=== PATIENT | male | born 1955 | race Caucasian/White ===

== ENCOUNTER 2016-06-03 00:58 | Inpatient (IN) | payer OTHER ==
[~2016-06-03] VITALS: Ht 170.2 cm; Wt 63.6 kg
[2016-06-03] VITALS (23 sets, daily range): BP systolic 82–168; BP diastolic 58–103; PULSE 63–116; RESP 12–25; TEMP 97.2–98.7; O2SAT 96–100
[~2016-06-03 00:58] MED LIST: DILA100C PO; LEVE500 PO
[2016-06-03] MEDS ORDERED: PROPOFOL 1000 MG/100 ML INJ 100 ML ONE (01:07)
[2016-06-03] MEDS ORDERED: SUCCINYLCHOLINE CHLORIDE 200 MG/10 ML VIAL IVP ONE (01:45)
[2016-06-03] MEDS ORDERED: ETOMIDATE 20 MG/10 ML VIAL IVP ONE (01:45)
[2016-06-03] MEDS ORDERED: SODIUM CHLORIDE 0.9% FLUSH 5 ML FLUSH IVF PRN (01:45)
[2016-06-03] MEDS ORDERED: SODIUM CHLOR 0.9% 1000 ML INJ 1,000 ML IV ONE (01:45)
[2016-06-03] MEDS ORDERED: PROPOFOL 1000 MG/100 ML INJ 100 ML IV SCH ×2 (02:00→05:45)
[2016-06-03 02:24] LABS: BLOOD GAS BASE EXCESS -5.3 mmol/L (-2-2); BLOOD GAS CARBOXYHEMOGLOBIN 4.6 % (0-4); BLOOD GAS HCO3 19 mmol/L (22-26); BLOOD GAS METHEMOGLOBIN 1.9 % (0-2); BLOOD GAS O2 HGB SATURATION 93 % (90-100); BLOOD GAS OXYGEN CONTENT 20.1 Vol % (12.0-20.0); BLOOD GAS PCO2 34 mmHg (38-42); BLOOD GAS PO2 359 mmHG (61-120); BLOOD GAS TOTAL HGB 14.7 G/DL (12.0-16.0); TEMP CORR TO 98.6
[2016-06-03 02:25] LABS: CRITICAL VALUE YES; DRAW SITE LT BRACHIAL; FIO2 80 %; NUMBER OF ARTERIAL PUNCTURES 1; OXYGEN DEVICE VENTILATOR; STAT YES; VENT SETTINGS AC 14/500 5 PEEP
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
[2016-06-03 02:38] LABS: AUTOMATED NEUTROPHIL # 8.9 TH/MM3 (1.8-7.7); BASOPHIL % 0.3 % (0.0-2.0); EOSINOPHIL # 0.2 TH/MM3 (0-0.4); EOSINOPHIL % 1.5 % (0.0-4.0); HEMATOCRIT 45.1 % (39.0-51.0); HEMO FLAGS DIFF FINAL; LYMPHOCYTE # 4.3 TH/MM3 (1.0-4.8); MEAN CELL VOLUME 99.3 FL (80.0-100.0); MEAN CORPUSCULAR HEMOGLOBIN 32.6 PG (27.0-34.0); MEAN CORPUSCULAR HGB CONC 32.8 % (32.0-36.0); MONO % 8.3 % (0.0-8.0); NEUT % 60.9 % (16.0-70.0); PLATELET COUNT 287 TH/MM3 (150-450); RED BLOOD COUNT 4.55 MIL/MM3 (4.50-5.90); RED CELL DISTRIBUTION WIDTH 13.7 % (11.6-17.2); WHITE BLOOD COUNT 14.7 TH/MM3 (4.0-11.0)
[2016-06-03 02:46] LABS: PROTHROMBIN TIME - PATIENT 10.5 SEC (9.8-11.6)
[2016-06-03 02:47] LABS: BLOOD, URINE SMALL (NEG); COMMENT (UR) CULT NOT INDICATED; CULTURE IF INDICATED CULT NOT INDICATED; GLUCOSE,URINE NEG (NEG); KETONE, URINE TRACE mg/dL (NEG); MUCUS URINE FEW /lpf (OCC); NITRITE,URINE NEG (NEG); SQUAMOUS EPITHELIAL CELL URINE <1 /hpf (0-5); URINE COLOR LIGHT-YELLOW (YELLW/STRAW)
[2016-06-03 02:49] LABS: AMPHETAMINE, URINE NEG (NEG); BARBITURATES, URINE NEG (NEG); COCAINE, URINE NEG (NEG)
--- NOTE | 2016-06-03 02:51 | RADRPT ---
EXAM DATE/TIME: 06/03/2016 01:59 [facility] COMPARISON: CHEST SINGLE AP, September 03, 2015, 19:21. INDICATIONS : Short of breath. MEDICAL HISTORY : Hypertension. SURGICAL HISTORY : None. ENCOUNTER: Initial ACUITY: 1 day PAIN SCORE: Non-responsive. LOCATION: Bilateral chest FINDINGS: A single view of the chest demonstrates the lungs to be symmetrically aerated without evidence of mas s, infiltrate or effusion. The cardiomediastinal contours are unremarkable. Osseous structures are intact. No tip of the endotracheal tube approximately 4 cm proximal to the jyoti. CONCLUSION: No acute disease. Panfilo Causey Jr., MD on June 03, 2016 at 2:48 Board Certified Radiologist. This report was verified electronically.
[2016-06-03 02:57] LABS: ALT (GPT) 31 U/L (12-78); ANION GAP 26 MEQ/L (5-15); AST (GOT) 39 U/L (15-37); BICARBONATE 9.8 MEQ/L (21.0-32.0); BLOOD UREA NITROGEN 11 MG/DL (7-18); CHLORIDE 98 MEQ/L (98-107); GLOMERULAR FILTRATION RATE 47 ML/MIN (>89); MAGNESIUM 2.5 MG/DL (1.5-2.5); POTASSIUM 3.6 MEQ/L (3.5-5.1); SODIUM (NA) 134 MEQ/L (136-145)
[2016-06-03 02:59] LABS: ALKALINE PHOSPHATASE 138 U/L (45-117); CREATINE KINASE 675 U/L (39-308); TOTAL BILIRUBIN ADULT 0.3 MG/DL (0.2-1.0)
[2016-06-03 03:12] LABS: CKMB 8.9 NG/ML (0.5-3.6)
[2016-06-03 03:14] LABS: ACETAMINOPHEN LESS THAN 2.0 MCG/ML (10.0-30.0)
[2016-06-03] MEDS ORDERED: FOSPHENYTOIN INJ 1,000 MGPE in SODIUM CHLORIDE 0.9% INJ 50 ML IV ONE (04:00)
--- NOTE | 2016-06-03 04:42 | HHI.HP ---
HPI Service Critical Care Medicine Primary Care Physician Unknown Admission Diagnosis AMS, Respiratory Failure Diagnosis: Travel History International Travel<30 Days: No Contact w/Intl Traveler <30 Da: No Traveled to Known Affected Are: No History of Present Illness Patient is intubated and unable to provide history. There is no family or friends with him. History was obtained by review of the MR and discussion with Dr. Ng. 60-year-old male with past medical history of seizure disorder and alcohol dependence who was found on the sidewalk next to a [employer] unresponsive. He had prescriptions with him for Dilantin and Keppra but had never been filled from 05/27/16. [facility] felt like he may be post ictal versus intoxicated. When he got into the ambulance truck he began having a grand mal seizure. He was given Ativan 2 mg IO and then another Ativan 2 mg IO but he was biting his tongue and blood was pooling in his oropharynx and they became concerned for airway protection so he was intubated with a Combitube following administration of etomidate. Blood glucose was 63. He was given dextrose and glucose on arrival was 173. Upon arrival he was moving all extremities but nonpurposeful. Combitube was removed and he was intubated by Dr. Rebekah Ng in the ED. Patient was incontinent of stool. Dilantin level I.3. Loaded with fosphenytoin 100 mg PE in the emergency department. [place] [facility] [place] after a seizure and had been prescribed Keppra and Dilantin. He drinks alcohol daily but reported at last ED visit that he had not been able to afford EtOH Review of Systems ROS Limitations: Clinical Condition, Intubated, Altered Mental Status Past Family Social History Allergies: Coded Allergies: Tegretol (Verified Allergy, Unknown, Dizziness, 06/03/16) DENIES Past Medical History Seizure disorder Alcohol dependence Tobacco abuse Past Surgical History Unable to obtain secondary to patient's clinical condition. He does have a surgical scar to his right abdomen Reported Medications Keppra 500 mg by mouth twice a day Dilantin 100 mg by mouth 3 times a day Family History Unable to obtain secondary to patient's clinical condition. Social History Unable to obtain from patient due to his critical condition. Review of EMR indicates: He is an ongoing smoker of one pack of cigarettes per day He has daily alcohol use At a prior visit he reported history of illicit drug use but was not more descriptive than that. Physical Exam Vital Signs Vital Signs Date Time Temp Pulse Resp B/P Pulse Ox O2 Delivery O2 Flow Rate FiO2 06/03/16 04:00 100 35 06/03/16 03:24 97.5 76 16 135/87 100 Room Air 06/03/16 02:33 98 Auto-Vent 06/03/16 02:33 12 98 Auto-Vent 06/03/16 02:30 97.2 81 16 136/85 100 Room Air 06/03/16 01:12 107 16 96 06/03/16 01:11 116 16 131/74 96 06/03/16 01:10 99 80 Physical Exam Drips: Propofol 50 micrograms per KG per minute Temp 98.1 Blood pressure 136/92 pulse 82 sats 99% GENERAL: Thin male who is very morrow. On sedation and mechanical ventilation SKIN: Warm and dry. HEAD: . Normocephalic. EYES: Pupils equal and round, pinpoint and reactive bilaterally. Mild bilateral conjunctival injection without exudate. ENT: No nasal bleeding or discharge. There is a bite on left tip of his tongue with some bleeding, will not require repair. Very poor dentition. NECK: Trachea midline. Jugular veins are flat CARDIOVASCULAR: Regular rate and rhythm, sinus rhythm on the monitor. No murmurs rubs or gallops. RESPIRATORY: Orotracheally intubated and on mechanical ventilation with ACV tidal volume 500/rate 14/P5/FiO2 40%. No accessory muscle use. Clear to auscultation. Breath sounds equal bilaterally. GASTROINTESTINAL: Abdomen soft, non-tender, nondistended. There is a well- healed scar to the right of his umbilicus. Bowel sounds are present. OG tube is in place with mostly clear with scant dark blood output. : Figueroa in place with light yellow urine output with some sediment. MUSCULOSKELETAL: Extremities without clubbing, cyanosis, or edema. No obvious deformities. NEUROLOGICAL: Opens eyes to noxious stimuli when sedation held and localizes bilateral upper extremities. Withdraws bilateral lower extremities. Does not follow commands. Laboratory Laboratory Tests Test 06/03/16 06/03/16 06/03/16 02:05 02:15 02:20 Blood Gas Puncture Site LT BRACHIAL Blood Gas Patient Temperature 98.6 Blood Gas HCO3 19 Blood Gas Base Excess -5.3 Blood Gas Oxygen Saturation 93 Arterial Blood pH 7.36 Arterial Blood Partial 34 Pressure CO2 Arterial Blood Partial 359 Pressure O2 Arterial Blood Oxygen Content 20.1 Arterial Blood 4.6 Carboxyhemoglobin Arterial Blood Methemoglobin 1.9 Blood Gas Hemoglobin 14.7 Oxygen Delivery Device VENTILATOR Blood Gas Ventilator Setting AC 14/500 5 PEEP Blood Gas Inspired Oxygen 80 Urine Opiates Screen NEG Urine Barbiturates Screen NEG Urine Amphetamines Screen NEG Urine Benzodiazepines Screen NEG Urine Cocaine Screen NEG Urine Cannabinoids Screen NEG White Blood Count 14.7 Red Blood Count 4.55 Hemoglobin 14.8 Hematocrit 45.1 Mean Corpuscular Volume 99.3 Mean Corpuscular Hemoglobin 32.6 Mean Corpuscular Hemoglobin 32.8 Concent Red Cell Distribution Width 13.7 Platelet Count 287 Mean Platelet Volume 7.7 Neutrophils (%) (Auto) 60.9 Lymphocytes (%) (Auto) 29.0 Monocytes (%) (Auto) 8.3 Eosinophils (%) (Auto) 1.5 Basophils (%) (Auto) 0.3 Neutrophils # (Auto) 8.9 Lymphocytes # (Auto) 4.3 Monocytes # (Auto) 1.2 Eosinophils # (Auto) 0.2 Basophils # (Auto) 0.0 CBC Comment DIFF FINAL Differential Comment Prothrombin Time 10.5 Prothromb Time International 1.0 Ratio Activated Partial 29.0 Thromboplast Time Urine Color LIGHT-YELLOW Urine Turbidity HAZY Urine pH 5.0 Urine Specific [place] 1.011 Urine Protein TRACE Urine Glucose (UA) NEG Urine Ketones TRACE Urine Occult Blood SMALL Urine Nitrite NEG Urine Bilirubin NEG Urine Urobilinogen LESS THAN 2.0 Urine Leukocyte Esterase NEG Urine WBC LESS THAN 1 Urine Squamous Epithelial <1 Cells Urine Mucus FEW Microscopic Urinalysis Comment CULT NOT INDICATED Sodium Level 134 Potassium Level 3.6 Chloride Level 98 Carbon Dioxide Level 9.8 Anion Gap 26 Blood Urea Nitrogen 11 Creatinine 1.52 Estimat Glomerular Filtration 47 Rate Random Glucose 164 Calcium Level 8.4 Magnesium Level 2.5 Total Bilirubin 0.3 Aspartate Amino Transf 39 (AST/SGOT) Alanine Aminotransferase 31 (ALT/SGPT) Alkaline Phosphatase 138 Total Creatine Kinase 675 Creatine Kinase MB 8.9 Creatine Kinase MB % 1.3 Troponin I LESS THAN 0.02 B-Type Natriuretic Peptide 12 Total Protein 8.0 Albumin 4.3 Lipase 109 Salicylates Level 6.1 Acetaminophen Level LESS THAN 2.0 Phenytoin (Dilantin) Level 1.3 Ethyl Alcohol Level LESS THAN 3 Result Diagram: 06/03/160 06/03/16219 Assessment and Plan Problem List: (1) Alcohol abuse ICD Code: F10.10 Status: Chronic (2) Seizure disorder ICD Code: G40.909 Status: Chronic (3) Hypoglycemia ICD Code: E16.2 Status: Acute (4) BERE (acute kidney injury) ICD Code: N17.9 Status: Acute (5) Acute respiratory failure ICD Code: J96.00 Status: Acute (6) Increased anion gap metabolic acidosis ICD Code: E87.2 Status: Acute (7) Tobacco abuse ICD Code: Z72.0 Status: Chronic Assessment and Plan NEURO: Acute seizure Subtherapeutic Dilantin level Seizure disorder Alcohol dependence Propofol for sedation with target RASS -[address] brain is pending Urine drug screen negative for stimulants. EtOH is less than 3. Thiamine/multivitamin/folic acid supplementation. Monitor for evidence of alcohol withdrawal Librium 25 mg per tube q6 hours. Ativan prn EtOH withdrawal. Dilantin level in am 06/05. RESP: Acute respiratory failure Tobacco abuse Intubated 06/03/16 for airway protection due to postictal state and sedatives following seizure. Routine airway per discussion with the ED physician. ACV tidal volume 500/rate 14/PEEP 5 Chest x-ray demonstrates satisfactory endotracheal tube position. Lungs are clear. DuoNeb every 6 hours. Albuterol every 2 hours when necessary. Start spontaneous breathing trial after fosphenytoin load is completed CV: Monitor hemodynamic GI: NPO. Place OGT. Initiate enteral feeds if not extubating today. FEN/RENAL: Acute kidney injury Hyponatremia likely secondary to alcoholism. Acute anion gap metabolic acidosis (most likely related to a lactic acidemia secondary to seizure) will check lactic acid level. There is also potential for alcoholic ketoacidosis. D5NS with 20 mEq of KCl per liter at 125 an hour [address] in place. Monitor intake and output. Monitor electrolytes. Avoid nephrotoxins. Replace electrolytes as indicated per ICU elected to let replacement protocol. CPK 675 ID: Mild leukocytosis which may be reactive secondary to seizure Monitor for evidence of infection, particularly aspiration pneumonia. Urinalysis is negative. Current chest x-ray has no infiltrate. HEME: No acute hematologic issues. ENDO: Hypoglycemia Is hypoglycemic per E VAC. Now euglycemic following dextrose administration. Will monitor on dextrose and fusion as per above PROPH: SCDs and teds for DVT prophylaxis. Hold on pharmacologic DVT prophylaxis until obtain results of CT brain. Protonix 40 mg IV daily for stress ulcer prophylaxis. ACCESS: Peripheral IV providing adequate access at this time. Critical care time 55 minutes exclusive of separately billable procedures. Frances Mccoy MD Jun 03, 2016 04:41
[2016-06-03] MEDS ORDERED: CHLORHEXIDINE GLUCONATE 2 % 1 PACK (2 CLOTHS) TOP PRN (05:30)
[2016-06-03] MEDS ORDERED: ONDANSETRON HCL 4 MG/2 ML VIAL IV PRN (05:30)
[2016-06-03] MEDS ORDERED: RESP: ALBUTEROL 2.5 MG/3 ML NEB (PRN) INH (05:30)
[2016-06-03] MEDS ORDERED: LORazepam 2 MG/ML VIAL IV PRN (05:30)
[2016-06-03] MEDS ORDERED: SODIUM CHLORIDE 0.9% FLUSH 5 ML FLUSH IV FLUSH PRN (05:30)
[2016-06-03] MEDS ORDERED: ACETAMINOPHEN 325 MG TAB PO PRN (05:30)
[2016-06-03] MEDS ORDERED: MISCELLANEOUS NURSING INFORMATION XX SCH (05:30)
[2016-06-03] MEDS ORDERED: POTASSIUM PHOSPHATE MONOBASIC 500 MG TAB PO/TUBE PRN (05:45)
[2016-06-03] MEDS ORDERED: POTASSIUM CHLOR 40 MEQ PREMIX 100 ML IV PRN ×2 (05:45)
[2016-06-03] MEDS ORDERED: POTASSIUM PHOSPHATE INJ 30 MMOL in SODIUM CHLOR 0.9% 250 ML INJ 250 ML IV PRN (05:45)
[2016-06-03] MEDS ORDERED: POTASSIUM CL 40 MEQ/30 ML LIQ UDC PO/TUBE PRN ×2 (05:45)
[2016-06-03] MEDS ORDERED: MAGNESIUM SULFATE INJ 2 GM in SODIUM CHLORIDE 0.9% INJ 96 ML IV PRN (05:45)
[2016-06-03] MEDS ORDERED: POTASSIUM PHOSPHATE MONOBASIC 500 MG TAB PO PRN (05:45)
[2016-06-03] MEDS ORDERED: MAGNESIUM OXIDE 400 MG TAB PO PRN (05:45)
[2016-06-03] MEDS ORDERED: MAGNESIUM SULFATE INJ 4 GM in SODIUM CHLORIDE 0.9% INJ 92 ML IV PRN (05:45)
[2016-06-03] MEDS ORDERED: POTASSIUM CHLOR 20 MEQ PREMIX 100 ML IV PRN ×2 (05:45)
[2016-06-03] MEDS ORDERED: SODIUM PHOSPHATE INJ 30 MMOL in SODIUM CHLOR 0.9% 250 ML INJ 240 ML IV PRN (05:45)
[2016-06-03] MEDS: D5-NS + KCL 20 MEQ INJ 1,000 ML IV SCH ×2 (05:55→13:45)
[2016-06-03] MEDS: chlordiazePOXIDE 25 MG CAP TUBE SCH ×3 (05:55→18:00)
[2016-06-03] MEDS ORDERED: levETIRAcetam 1000 MG INJ 100 ML IV ONE (06:00)
[2016-06-03] MEDS: CHLORHEXIDINE 0.12% (ORAL KIT) 15 ML CUP MT SCH (08:00)
[2016-06-03] MEDS: PANTOPRAZOLE SODIUM 40 MG VIAL IV SCH (09:00)
[2016-06-03] MEDS: RESP: ALBUTEROL 2.5 MG/IPRATROPIUM 0.5 MG NEB (SCH) INH ×3 (09:10→20:46)
[2016-06-03] MEDS: SODIUM CHLORIDE 0.9% FLUSH 5 ML FLUSH IV FLUSH SCH (10:11)
[2016-06-03] MEDS: FOLIC ACID 1 MG TAB TUBE SCH (13:08)
[2016-06-03] MEDS: MULTIVITAMINS LIQUID 5 ML UDC TUBE SCH (13:08)
[2016-06-03] MEDS: THIAMINE HCL 100 MG TAB TUBE SCH (13:09)
[2016-06-03] MEDS: PHENYTOIN SUSP 100 MG/4 ML CUP PO SCH ×2 (14:00→22:18)
--- NOTE | 2016-06-03 14:02 | RADRPT ---
EXAM DATE/TIME: 06/03/2016 13:44 [place] COMPARISON: CT BRAIN W/O CONTRAST, May 27, 2016, 15:15. INDICATIONS : Found unresponsive last night. RADIATION DOSE: 39.32 CTDIvol (mGy) MEDICAL HISTORY : Seizures. Cardiovascular disease Hypertension. SURGICAL HISTORY : Craniotomy. ENCOUNTER: Initial ACUITY: 1 day PAIN SCALE: Non-responsive LOCATION: Bilateral cranial TECHNIQUE: Multiple contiguous axial images were obtained of the head. Using automated exposure control and adj ustment of the mA and/or kV according to patient size, radiation dose was kept as low as reasonably a chievable to obtain optimal diagnostic quality images. FINDINGS: Today's exam is compared to the prior study. No new or significant changes are demonstrated. No focal or acute intracranial hemorrhage is demonstrated. 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 The ventricles are stable in size and position. The posterior fossa is s table and unremarkable. There is good position of the right craniotomy flap. CONCLUSION: Stable CT brain compared to the prior exam. No new or significant changes. Hai Mckeon MD on June 03, 2016 at 13:59 Board Certified Radiologist. This report was verified electronically.
[2016-06-03] MEDS ORDERED: CHLORHEXIDINE GLUCONATE 2 % 1 PACK (2 CLOTHS)(extra cloths) TOP PRN (14:45)
[2016-06-03] MEDS: DEXMEDETOMIDINE 200 MCG/50 ML NS IV SCH (18:07)
[2016-06-03] MEDS: levETIRAcetam INJ 500 MG in SODIUM CHLORIDE 0.9% INJ 100 ML IV SCH (22:18)
--- NOTE | 2016-06-03 23:44 | EKG ---
Date Performed: 06/03/2016 Time Performed: 03:18:11 PTAGE: 60 years EKG: Sinus rhythm NORMAL ECG PREVIOUS TRACING : 05/27/2016 15.51 DOCTOR: Trey Mendoza Interpretating Date/Time 06/03/2016 23:40:48
[2016-06-04] VITALS (19 sets, daily range): BP systolic 90–137; BP diastolic 53–86; PULSE 74–96; RESP 16–33; TEMP 96–100.8; O2SAT 95–100
[2016-06-04] MEDS: RESP: ALBUTEROL 2.5 MG/IPRATROPIUM 0.5 MG NEB (SCH) INH ×4 (03:12→21:15)
[2016-06-04] MEDS: CHLORHEXIDINE GLUCONATE 2 % 1 PACK (2 CLOTHS) TOP SCH (04:00)
[2016-06-04] MEDS ORDERED: CHLORHEXIDINE GLUCONATE 2 % 1 PACK (2 CLOTHS)(taper/protocol) TOP SCH (04:00)
[2016-06-04] MEDS: SODIUM CHLORIDE 0.9% FLUSH 5 ML FLUSH IV FLUSH SCH ×3 (05:10→21:02)
[2016-06-04] MEDS: chlordiazePOXIDE 25 MG CAP TUBE SCH ×4 (05:10→21:01)
[2016-06-04] MEDS: D5-NS + KCL 20 MEQ INJ 1,000 ML IV SCH ×3 (05:10→12:57)
[2016-06-04 06:27] LABS: AUTOMATED NEUTROPHIL # 6.3 TH/MM3 (1.8-7.7); EOSINOPHIL % 0.1 % (0.0-4.0); HEMATOCRIT 36.4 % (39.0-51.0); HEMO FLAGS DIFF FINAL; LYMPH % 9.5 % (9.0-44.0); LYMPHOCYTE # 0.7 TH/MM3 (1.0-4.8); MEAN CELL VOLUME 95.2 FL (80.0-100.0); MEAN CORPUSCULAR HEMOGLOBIN 32.4 PG (27.0-34.0); MEAN CORPUSCULAR HGB CONC 34.1 % (32.0-36.0); MONO % 8.6 % (0.0-8.0); NEUT % 81.8 % (16.0-70.0); PLATELET COUNT 143 TH/MM3 (150-450); RED BLOOD COUNT 3.83 MIL/MM3 (4.50-5.90); RED CELL DISTRIBUTION WIDTH 13.9 % (11.6-17.2); WHITE BLOOD COUNT 7.7 TH/MM3 (4.0-11.0)
[2016-06-04] MEDS: PHENYTOIN SUSP 100 MG/4 ML CUP PO SCH ×3 (06:31→21:02)
[2016-06-04 07:02] LABS: POTASSIUM 3.6 MEQ/L (3.5-5.1)
[2016-06-04] MEDS: levETIRAcetam INJ 500 MG in SODIUM CHLORIDE 0.9% INJ 100 ML IV SCH ×2 (08:56→21:01)
[2016-06-04] MEDS: MULTIVITAMINS LIQUID 5 ML UDC TUBE SCH (08:56)
[2016-06-04] MEDS: CHLORHEXIDINE 0.12% (ORAL KIT) 15 ML CUP MT SCH ×2 (08:56→20:00)
[2016-06-04] MEDS: THIAMINE HCL 100 MG TAB TUBE SCH (08:56)
[2016-06-04] MEDS: PANTOPRAZOLE SODIUM 40 MG VIAL IV SCH (08:57)
[2016-06-04] MEDS: FOLIC ACID 1 MG TAB TUBE SCH (08:57)
[2016-06-04] MEDS: DEXMEDETOMIDINE 200 MCG/50 ML NS IV SCH (09:42)
--- NOTE | 2016-06-04 11:30 | HHI.CCPN ---
Subjective Remarks/Hospital Course Hospital Course: Patient is intubated and unable to provide history. There is no family or friends with him. History was obtained by review of the MR and discussion with Dr. Ng. 60-year-old male with past medical history of seizure disorder and alcohol dependence who was found on the sidewalk next to a [employer] unresponsive. He had prescriptions with him for Dilantin and Keppra but had never been filled from 05/27/16. [facility] felt like he may be post ictal versus intoxicated. When he got into the ambulance truck he began having a grand mal seizure. He was given Ativan 2 mg IO and then another Ativan 2 mg IO but he was biting his tongue and blood was pooling in his oropharynx and they became concerned for airway protection so he was intubated with a Combitube following administration of etomidate. Blood glucose was 63. He was given dextrose and glucose on arrival was 173. Upon arrival he was moving all extremities but nonpurposeful. Combitube was removed and he was intubated by Dr. Rebekah Ng in the ED. Patient was incontinent of stool. Dilantin level I.3. Loaded with fosphenytoin 100 mg PE in the emergency department. He had been seen in [facility] [place] emergency Department 05/27 after a seizure and had been prescribed Keppra and Dilantin. He drinks alcohol daily but reported at last ED visit that he had not been able to afford EtOH Subjective: 06/04: patient overnight and yesterday was still too somnolent to pass SBT, though he followed commands most of the day yesterday. he is stable on his home dose of anti-epileptics. Objective Vital Signs Date Time Temp Pulse Resp B/P Pulse Ox O2 Delivery O2 Flow Rate FiO2 06/04/16 08:01 100 35 06/04/16 06:00 80 06/04/16 04:00 96.0 16 90/53 06/03/16 14:20 Ventilator 06/03/16 13:19 15 Intake and Output 06/03/16 06/03/16 06/03/16 07:59 15:59 23:59 Intake Total 2983 ml Output Total 1300 ml Balance 1683 ml Result Diagram: 06/04/1630 06/04/16 0530 Objective Remarks Drips: Precedex 0.5mcg/kg/min. Temp 98.1 Blood pressure 136/92 pulse 82 sats 99% Gen: thin middle-aged male, lying in bed, intubated, sedated. HEENT: pupils equal, round, conjugate, reactive. mucous membranes moist. NECK: Trachea midline. Jugular veins are flat CARDIOVASCULAR: Regular rate and rhythm, sinus rhythm on the monitor. No murmurs rubs or gallops. RESPIRATORY: Orotracheally intubated and on mechanical ventilation on PSV 8/5/40 %. Clear to auscultation. Breath sounds equal bilaterally. GASTROINTESTINAL: Abdomen soft, non-tender, nondistended. There is a well- healed scar to the right of his umbilicus. OG tube is in place with mostly clear with scant dark blood output. MUSCULOSKELETAL: Extremities without clubbing, cyanosis, or edema. No obvious deformities. NEUROLOGICAL: RASS -2. Follows commands x 4. somnolent. A/P Problem List: (1) Alcohol abuse ICD Code: F10.10 Status: Chronic (2) Seizure disorder ICD Code: G40.909 Status: Chronic (3) Hypoglycemia ICD Code: E16.2 Status: Acute (4) BERE (acute kidney injury) ICD Code: N17.9 Status: Acute (5) Acute respiratory failure ICD Code: J96.00 Status: Acute (6) Increased anion gap metabolic acidosis ICD Code: E87.2 Status: Acute (7) Tobacco abuse ICD Code: Z72.0 Status: Chronic Assessment and Plan NEURO: Acute seizure Subtherapeutic Dilantin level Seizure disorder Alcohol dependence Precedex for sedation with target RASS [address] brain is pending Urine drug screen negative for stimulants. EtOH is less than 3. Thiamine/multivitamin/folic acid supplementation. Monitor for evidence of alcohol withdrawal Librium 25 mg per tube q6 hours. Ativan prn EtOH withdrawal. Dilantin level in am 1/5. RESP: Acute respiratory failure Tobacco abuse Intubated 06/03/16 for airway protection due to postictal state and sedatives following seizure. Routine airway per discussion with the ED physician. ACV tidal volume 500/rate 14/PEEP 5 Chest x-ray demonstrates satisfactory endotracheal tube position. Lungs are clear. DuoNeb every 6 hours. Albuterol every 2 hours when necessary. SBT today. if he passes, will proceed with extubation. CV: Monitor hemodynamic GI: NPO. TF. will d/c these if we extubate. if we extubate, will perform nursing bedside swallow eval: if he passes, will advance diet slowly. FEN/RENAL: Acute kidney injury- resolving. Hyponatremia likely secondary to alcoholism. Acute anion gap metabolic acidosis (most likely related to a lactic acidemia secondary to seizure) will check lactic acid level. There is also potential for alcoholic ketoacidosis. D5NS with 20 mEq of KCl per liter at 125 an [address] in place. Monitor intake and output. Monitor electrolytes. Avoid nephrotoxins. Replace electrolytes as indicated per ICU elected to let replacement protocol. CPK 675 ID: Mild leukocytosis which may be reactive secondary to seizure Monitor for evidence of infection, particularly aspiration pneumonia. Urinalysis is negative. Current chest x-ray has no infiltrate. HEME: No acute hematologic issues. ENDO: Hypoglycemia Is hypoglycemic per E VAC. Now euglycemic following dextrose administration. Will monitor on dextrose infusion as per above PROPH: SCDs and teds for DVT prophylaxis. start lovenox 40mg sq q24h. Protonix 40 mg IV daily for stress ulcer prophylaxis. ACCESS: Peripheral IV providing adequate access at this time. Problem Qualifiers (1) Acute respiratory failure: Qualified Code: J96.00 - Acute respiratory failure, unspecified whether with hypoxia or hypercapnia Miller Garcia MD Jun 04, 2016 11:30
[2016-06-04] MEDS: ENOXAPARIN SODIUM 40 MG/0.4 ML SYRINGE SQ SCH (12:56)
[2016-06-04] MEDS ORDERED: HYDROmorphone HCL PF 1 MG/ML VIAL IV PUSH PRN (15:30)
[2016-06-05] VITALS (8 sets, daily range): BP systolic 124–149; BP diastolic 72–83; PULSE 80–97; RESP 19–24; TEMP 97.8–99.1; O2SAT 95–98
[2016-06-05] MEDS: RESP: ALBUTEROL 2.5 MG/IPRATROPIUM 0.5 MG NEB (SCH) INH (04:00)
[2016-06-05] MEDS: CHLORHEXIDINE GLUCONATE 2 % 1 PACK (2 CLOTHS) TOP SCH (04:00)
[2016-06-05] MEDS: PHENYTOIN SUSP 100 MG/4 ML CUP PO SCH ×2 (06:09→13:40)
[2016-06-05] MEDS: chlordiazePOXIDE 25 MG CAP TUBE SCH ×2 (06:09→13:40)
[2016-06-05] MEDS: CHLORHEXIDINE 0.12% (ORAL KIT) 15 ML CUP MT SCH (08:00)
[2016-06-05] MEDS: levETIRAcetam INJ 500 MG in SODIUM CHLORIDE 0.9% INJ 100 ML IV SCH (09:22)
[2016-06-05] MEDS: MULTIVITAMINS LIQUID 5 ML UDC TUBE SCH (09:22)
[2016-06-05] MEDS: FOLIC ACID 1 MG TAB TUBE SCH (09:22)
[2016-06-05] MEDS: THIAMINE HCL 100 MG TAB TUBE SCH (09:22)
[2016-06-05] MEDS: SODIUM CHLORIDE 0.9% FLUSH 5 ML FLUSH IV FLUSH SCH (09:27)
--- NOTE | 2016-06-05 10:42 | HHI.PR ---
Subjective Remarks Patient sitting on the chair awake and alert, he is oriented to his name, not to the time or the place, he thing we are in [place], he cannot tell that this is a hospital He Is concerned about his close, we'll monitor him will transferred to medical floor, will continue CIWA protocol and watch for withdrawal symptom Objective Vitals Vital Signs Date Time Temp Pulse Resp B/P Pulse Ox O2 Delivery O2 Flow Rate FiO2 06/05/16 06:00 80 06/05/16 04:00 97.9 80 20 143/72 95 06/05/16 04:00 80 06/05/16 02:00 84 06/05/16 00:00 81 06/05/16 00:00 99.1 86 24 124/73 96 06/04/16 22:00 89 06/04/16 21:15 98 21 06/04/16 20:00 89 06/04/16 20:00 99.8 93 20 137/83 96 06/04/16 18:00 96 06/04/16 16:23 98 21 06/04/16 16:00 100.5 96 21 135/78 98 06/04/16 16:00 96 06/04/16 14:00 96 06/04/16 12:35 100 Nasal Cannula 15 06/04/16 12:00 90 06/04/16 12:00 100.8 90 19 133/81 100 06/04/16 11:36 99 35 I/O 06/04/16 06/04/16 06/04/16 06/05/16 06/05/16 06/05/16 06:59 14:59 22:59 06:59 14:59 22:59 Intake Total 826 ml 1507 ml 350 ml 200 ml Output Total 750 ml 850 ml 750 ml 400 ml Balance 76 ml 657 ml -400 ml -200 ml Intake Oral 120 ml 250 ml 200 ml IV Total 826 ml 1387 ml 100 ml Output Urine Total 750 ml 850 ml 750 ml 400 ml Stool Total 0 ml Result Diagram: 06/04/1630 06/04/16 0530 Objective Remarks - GENERAL: This is a well-nourished, well-developed patient, in no apparent distress. SKIN: No rashes, warm and dry HEAD: Atraumatic. Normocephalic. EYES: Pupils equal round and reactive. Extraocular motions intact. No scleral icterus. ENT: Nose without bleeding, or drainage, Airway patent. NECK: Trachea midline. Supple CARDIOVASCULAR: Regular rate and rhythm without murmurs, gallops, or rubs. RESPIRATORY: Fair air entry bilaterally. No wheezes, rales, or rhonchi. GASTROINTESTINAL: Abdomen soft, non-tender, nondistended. Positive bowel sounds MUSCULOSKELETAL: Extremities without clubbing, cyanosis, or edema. Pedal pulses appreciated NEUROLOGICAL: Awake and alert. Partially oriented to place nose is in [place] but cannot specify if the hospital, a finger in May Moves all extremity. Normal speech.no focal neurological deficit A/P Assessment and Plan 06/05/16: Stable, not fully oriented, change Keppra to by mouth, continue Dilantin , can you CIWA protocol watch for alcohol withdrawal symptoms A/P: Acute seizure Subtherapeutic Dilantin level Seizure disorder Alcohol dependence Status post Precedex for sedation CT brain reviewed unremarkable Urine drug screen negative for stimulants. EtOH is less than 3. Thiamine/multivitamin/folic acid supplementation. Monitor for evidence of alcohol withdrawal Librium 25 mg per tube q6 hours. Ativan prn EtOH withdrawal. Dilantin level in am 1/5. Acute respiratory failure Tobacco abuse Status post intubation and extubation Chest x-ray demonstrates satisfactory endotracheal tube position. Lungs are clear. DuoNeb every 6 hours. Albuterol every 2 hours when necessary. SBT today. if he passes, will proceed with extubation. Acute kidney injury- resolving. Hyponatremia likely secondary to alcoholism. Acute anion gap metabolic acidosis (most likely related to a lactic acidemia secondary to seizure) will check lactic acid level. There is also potential for alcoholic ketoacidosis. D5NS with 20 mEq of KCl per liter at 125 an [address] in place. Monitor intake and output. Monitor electrolytes. Avoid nephrotoxins. Replace electrolytes as indicated per ICU elected to let replacement protocol. CPK 675 Mild leukocytosis which may be reactive secondary to seizure Hypoglycemia: Is hypoglycemic per E VAC. Now euglycemic following dextrose administration. Will monitor on dextrose infusion as per above PROPH: SCDs and teds for DVT prophylaxis. start lovenox 40mg sq q24h. Protonix 40 mg IV daily for stress ulcer prophylaxis. Juancarlos Goldberg MD Jun 05, 2016 10:42
[2016-06-05] MEDS: ENOXAPARIN SODIUM 40 MG/0.4 ML SYRINGE SQ SCH (13:40)
[2016-06-05] MEDS ORDERED: levETIRAcetam 500 MG TAB PO SCH (21:00)
[2016-06-06] MEDS ORDERED: chlordiazePOXIDE 25 MG CAP TUBE SCH (20:00)
[2016-06-08] MEDS ORDERED: chlordiazePOXIDE 25 MG CAP TUBE SCH (20:00)
[2016-07-17] MEDS ORDERED: DILA100C PO (16:21)
[2016-07-17] MEDS ORDERED: LEVE500 PO (16:21)
[2016-07-17] MEDS ORDERED: LISI-519 PO (16:23)
== END 2016-06-05 14:45 | disposition left against medical advice (07) | DRG 208 ==
LOC: NEPE 00:58 → NEDA 04:00 → HIMW 13:50
PROVIDERS: ADMIT Hospitalist; ATTEND Hospitalist
PROC: 5A1935Z Respiratory Ventilation, Less than 24 Consecutive Hours (ICD-10-PCS; principal; 2016-06-03)
PROC: 0BH17EZ Insertion of Endotracheal Airway into Trachea, Via Natural or Artificial Opening (ICD-10-PCS; 2016-06-03)
DX: J96.00 Acute respiratory failure, unspecified whether with hypoxia or hypercapnia (principal); N17.9 Acute kidney failure, unspecified; E87.2 Acidosis; E87.1 Hypo-osmolality and hyponatremia; G40.409 Other generalized epilepsy and epileptic syndromes, not intractable, without status epilepticus; I10 Essential (primary) hypertension; R15.9 Full incontinence of feces; F17.210 Nicotine dependence, cigarettes, uncomplicated; E16.2 Hypoglycemia, unspecified; D72.829 Elevated white blood cell count, unspecified; F10.20 Alcohol dependence, uncomplicated
CPT/HCPCS: 31500; 36600; 51702; 70450; 71010; 80048; 80053; 80185; 80307; 80320; 80329; 81001; 82040; 82550; 82552; 82805; 82948; 83605; 83690; 83735; 83880; 84100; 84484; 85025; 85610; 85730; 87641; 93005; 94002; 94003; 94150; 94640; 94664; 96365; 96366; C9113; C9399; G0480; J0330; J1650; J1953; J3480; J7030; J7050; Q2009

== ENCOUNTER 2016-07-30 18:16 | Emergency (ER) | payer OTHER ==
[~2016-07-30] VITALS: Ht 170.2 cm; Wt 65.0 kg
[~2016-07-30 18:16] MED LIST changes: +LISI-519 PO
[2016-07-30 18:19] VITALS: BP 125/81; PULSE 87; RESP 18; TEMP 98; O2SAT 92
[2016-07-30] MEDS ORDERED: SODIUM CHLOR 0.9% 1000 ML INJ 1,000 ML IV ONE (21:57)
[2016-07-30] MEDS ORDERED: SODIUM CHLORIDE 0.9% FLUSH 5 ML FLUSH IVF PRN (22:00)
[2016-07-30] MEDS ORDERED: levETIRAcetam INJ 500 MG in SODIUM CHLORIDE 0.9% INJ 100 ML IV ONE (22:00)
[2016-07-30 22:46] LABS: AUTOMATED NEUTROPHIL # 4.4 TH/MM3 (1.8-7.7); BASOPHIL % 0.5 % (0.0-2.0); EOSINOPHIL # 0.1 TH/MM3 (0-0.4); EOSINOPHIL % 1.9 % (0.0-4.0); HEMATOCRIT 43.1 % (39.0-51.0); HEMO FLAGS DIFF FINAL; LYMPH % 35.2 % (9.0-44.0); LYMPHOCYTE # 2.7 TH/MM3 (1.0-4.8); MEAN CELL VOLUME 93.4 FL (80.0-100.0); MEAN CORPUSCULAR HGB CONC 35.3 % (32.0-36.0); MONO % 5.3 % (0.0-8.0); NEUT % 57.1 % (16.0-70.0); PLATELET COUNT 227 TH/MM3 (150-450); RED BLOOD COUNT 4.62 MIL/MM3 (4.50-5.90); RED CELL DISTRIBUTION WIDTH 13.3 % (11.6-17.2); WHITE BLOOD COUNT 7.7 TH/MM3 (4.0-11.0)
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
--- NOTE | 2016-07-30 22:53 | RADRPT ---
EXAM DATE/TIME: 07/30/2016 22:27 [facility] COMPARISON: CT FACIAL BONES W/O CONTRAST, March 06, 2016, 15:49. INDICATIONS : Seizure and head trauma with facial trauma. RADIATION DOSE: 47.45 CTDIvol (mGy) MEDICAL HISTORY : Seizures. Hypertension. SURGICAL HISTORY : Craniotomy. ENCOUNTER: Initial ACUITY: 1 day PAIN SCORE: 5/10 LOCATION: neck TECHNIQUE: Volumetric scanning of the facial bones was performed. Using automated exposure control and adjustme nt of the mA and/or kV according to patient size, radiation dose was kept as low as reasonably achiev able to obtain optimal diagnostic quality images. FINDINGS: A right temporal craniotomy defect with underlying encephalomalacia in the upper lobe is noted. Nondisplaced fracture is identified involving the nasal bone. Bony orbits, zygomatic arches, maxilla and mandible are intact. CONCLUSION: Nondepressed nasal bone fracture which does not appear acute since it was present on previous evaluat ion. Intact orbits, maxilla and mandible. Status post right temporal craniotomy. Rob Haynes MD on July 30, 2016 at 22:48 Board Certified Radiologist. This report was verified electronically.
--- NOTE | 2016-07-30 22:56 | RADRPT ---
EXAM DATE/TIME: 07/30/2016 22:27 [facility] COMPARISON: CT BRAIN W/O CONTRAST, June 03, 2016, 13:44. INDICATIONS : Seizure and fall with head trauma. RADIATION DOSE: 44.85 CTDIvol (mGy) MEDICAL HISTORY : Seizures. Hypertension. SURGICAL HISTORY : Craniotomy. ENCOUNTER: Initial ACUITY: 1 day PAIN SCALE: 5/10 LOCATION: cranial TECHNIQUE: Multiple contiguous axial images were obtained of the head. Using automated exposure control and adj ustment of the mA and/or kV according to patient size, radiation dose was kept as low as reasonably a chievable to obtain optimal diagnostic quality images. FINDINGS: The appearance of the brain is stable compared to prior study on 06/03/2016. There is a right frontal t emporal craniotomy defect. Significant underlying encephalomalacia with volume loss is identified in the right frontal lobe which is stable. Mild encephalomalacia is also present in the left frontal lobe. There is no subacute infarct, hemorrhage, mass or edema. CSF spaces are stable. CONCLUSION: Status post right-sided craniotomy. Bifrontal encephalomalacia which is stable. No evidence of acute infarct, hemorrhage, mass or edema. Rob Haynes MD on July 30, 2016 at 22:51 Board Certified Radiologist. This report was verified electronically.
[2016-07-30 23:28] LABS: ANION GAP 11 MEQ/L (5-15); AST (GOT) 19 U/L (15-37); BICARBONATE 24.5 MEQ/L (21.0-32.0); BLOOD UREA NITROGEN 12 MG/DL (7-18); CHLORIDE 101 MEQ/L (98-107); GLOMERULAR FILTRATION RATE 75 ML/MIN (>89); POTASSIUM 3.9 MEQ/L (3.5-5.1); SODIUM (NA) 136 MEQ/L (136-145)
[2016-07-30 23:31] LABS: ALKALINE PHOSPHATASE 128 U/L (45-117); ALT (GPT) 20 U/L (12-78); TOTAL BILIRUBIN ADULT 0.2 MG/DL (0.2-1.0)
[2016-07-30 23:50] LABS: AMPHETAMINE, URINE NEG (NEG); BARBITURATES, URINE NEG (NEG); COCAINE, URINE NEG (NEG)
--- NOTE | 2016-07-31 01:27 | PD ---
Physical Exam Narrative I, Dr. Turner, have reviewed the advance practice practitioner's documentation and am in agreement, met with the patient face to face, made the diagnosis, and the medical decision making was done by me. *My assessment and Findings: Patient is a 61 year old male with known history of seizures who comes in after a seizure today. He reports compliance with his medication. Data Data Last Documented VS Vital Signs Date Time Temp Pulse Resp B/P Pulse Ox O2 Delivery O2 Flow Rate FiO2 07/31/16 01:51 100 Room Air 07/30/16 21:48 119 18 07/30/16 18:19 98.0 125/81 Orders Complete Blood Count With Diff (07/30/16 21:57) Alcohol (Ethanol) (07/30/16 21:57) Phenytoin (Dilantin) (07/30/16 21:57) Drug Screen, Random Urine (07/30/16 21:57) Electrocardiogram (07/30/16 ) Ct Brain W/O Iv Contrast(Rout) (07/30/16 ) Blood Glucose (07/30/16 21:57) Ecg Monitoring (07/30/16 21:57) Iv Access Insert/Monitor (07/30/16 21:57) Oximetry (07/30/16 21:57) Comprehensive Metabolic Panel (07/30/16 21:57) Sodium Chlor 0.9% 1000 Ml Inj (Ns 1000 M (07/30/16 21:57) Sodium Chloride 0.9% Flush (Ns Flush) (07/30/16 22:00) Ct Facial Bones W/O Iv Cont (07/30/16 ) Levetiracetam Inj (Keppra Inj) (07/30/16 22:00) Labs Laboratory Tests Test 07/30/16 07/30/16 22:00 23:26 White Blood Count 7.7 TH/MM3 Red Blood Count 4.62 MIL/MM3 Hemoglobin 15.2 GM/DL Hematocrit 43.1 % Mean Corpuscular Volume 93.4 FL Mean Corpuscular Hemoglobin 33.0 PG Mean Corpuscular Hemoglobin 35.3 % Concent Red Cell Distribution Width 13.3 % Platelet Count 227 TH/MM3 Mean Platelet Volume 7.0 FL Neutrophils (%) (Auto) 57.1 % Lymphocytes (%) (Auto) 35.2 % Monocytes (%) (Auto) 5.3 % Eosinophils (%) (Auto) 1.9 % Basophils (%) (Auto) 0.5 % Neutrophils # (Auto) 4.4 TH/MM3 Lymphocytes # (Auto) 2.7 TH/MM3 Monocytes # (Auto) 0.4 TH/MM3 Eosinophils # (Auto) 0.1 TH/MM3 Basophils # (Auto) 0.0 TH/MM3 CBC Comment DIFF FINAL Differential Comment Sodium Level 136 MEQ/L Potassium Level 3.9 MEQ/L Chloride Level 101 MEQ/L Carbon Dioxide Level 24.5 MEQ/L Anion Gap 11 MEQ/L Blood Urea Nitrogen 12 MG/DL Creatinine 1.01 MG/DL Estimat Glomerular Filtration 75 ML/MIN Rate Random Glucose 75 MG/DL Calcium Level 8.4 MG/DL Total Bilirubin 0.2 MG/DL Aspartate Amino Transf 19 U/L (AST/SGOT) Alanine Aminotransferase 20 U/L (ALT/SGPT) Alkaline Phosphatase 128 U/L Total Protein 7.7 GM/DL Albumin 4.1 GM/DL Phenytoin (Dilantin) Level 25.7 MCG/ML Ethyl Alcohol Level 85 MG/DL Urine Opiates Screen NEG Urine Barbiturates Screen NEG Urine Amphetamines Screen NEG Urine Benzodiazepines Screen NEG Urine Cocaine Screen NEG Urine Cannabinoids Screen NEG MDM Supervised Visit with HUBER: Yes Narrative Course CT head shows no acute abnormalities. Labs show a slightly elevated phenytoin level. Patient advised to take a smaller dose of his Dilantin in the morning and then resume his normal dosage. Advised to follow up with his neurologist. Advised to return to the ED as needed for any worsening symptoms Diagnosis Primary Impression: Seizure disorder Patient Instructions: General Instructions, Recurrent Seizures in Adults (ED) Additional Instruction: Your Dilantin level was elevated today. Only take one dose of Dilantin tomorrow and then resume your normal dosage the following day. Avoid alcohol use. Return to the ED as needed for any worsening symptoms. Follow up with your doctor. Disposition: 01 DISCHARGE HOME Condition: Stable Mindy Turner MD Jul 31, 2016 01:27
[2016-07-31 01:51] VITALS: O2SAT 100
--- NOTE | 2016-07-31 23:48 | EKG ---
Date Performed: 07/30/2016 Time Performed: 22:00:51 PTAGE: 60 years EKG: Sinus rhythm NORMAL ECG PREVIOUS TRACING : 06/03/2016 03.18 Compared to prior tracing no significant change DOCTOR: Ander Duran Interpretating Date/Time 07/31/2016 23:47:00
== END 2016-07-31 04:13 | disposition home or self-care (01) ==
LOC: NEPE 18:16
DX: G40.909 Epilepsy, unspecified, not intractable, without status epilepticus (principal); K08.89 Other specified disorders of teeth and supporting structures; I10 Essential (primary) hypertension; F17.200 Nicotine dependence, unspecified, uncomplicated; Z79.899 Other long term (current) drug therapy; Z86.69 Personal history of other diseases of the nervous system and sense organs; Z86.79 Personal history of other diseases of the circulatory system; Z87.39 Personal history of other diseases of the musculoskeletal system and connective tissue
CPT/HCPCS: 70450; 70486; 80053; 80185; 80307; 80320; 85025; 93005; 96374; 99284; J1953; J7030

== ENCOUNTER 2016-08-17 15:15 | Emergency (ER) | payer OTHER ==
[~2016-08-17] VITALS: Ht 170.2 cm; Wt 66.8 kg
[2016-08-17 15:31] VITALS: BP 136/83; PULSE 105; RESP 18; TEMP 99.1; O2SAT 94
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
[2016-08-17] MEDS ORDERED: SODIUM CHLOR 0.9% 1000 ML INJ 1,000 ML IV ONE (15:45)
[2016-08-17] MEDS ORDERED: SODIUM CHLORIDE 0.9% FLUSH 5 ML FLUSH IVF PRN (15:45)
[2016-08-17 15:51] VITALS: BP 136/83; PULSE 99; RESP 18; O2SAT 95
[2016-08-17 16:08] LABS: AUTOMATED NEUTROPHIL # 6.8 TH/MM3 (1.8-7.7); BASOPHIL % 0.4 % (0.0-2.0); EOSINOPHIL # 0.1 TH/MM3 (0-0.4); HEMATOCRIT 44.2 % (39.0-51.0); HEMO FLAGS DIFF FINAL; LYMPH % 15.9 % (9.0-44.0); LYMPHOCYTE # 1.4 TH/MM3 (1.0-4.8); MEAN CELL VOLUME 94.4 FL (80.0-100.0); MEAN CORPUSCULAR HEMOGLOBIN 31.7 PG (27.0-34.0); MEAN CORPUSCULAR HGB CONC 33.6 % (32.0-36.0); MONO % 7.2 % (0.0-8.0); NEUT % 75.5 % (16.0-70.0); PLATELET COUNT 209 TH/MM3 (150-450); RED BLOOD COUNT 4.68 MIL/MM3 (4.50-5.90); RED CELL DISTRIBUTION WIDTH 13.6 % (11.6-17.2)
[2016-08-17 16:26] LABS: BICARBONATE 20.7 MEQ/L (21.0-32.0); POTASSIUM 4.2 MEQ/L (3.5-5.1)
--- NOTE | 2016-08-17 16:34 | RADRPT ---
EXAM DATE/TIME: 08/17/2016 16:03 [facility] COMPARISON: CT BRAIN W/O CONTRAST, July 30, 2016, 22:27. INDICATIONS : Witnessed seizure. RADIATION DOSE: 56.35 CTDIvol (mGy) MEDICAL HISTORY : Cardiovascular disease. Seizures. Hypertension. SURGICAL HISTORY : Craniotomy. ENCOUNTER: Initial ACUITY: 1 day PAIN SCALE: 0/10 LOCATION: cranial TECHNIQUE: Multiple contiguous axial images were obtained of the head. Using automated exposure control and adj ustment of the mA and/or kV according to patient size, radiation dose was kept as low as reasonably a chievable to obtain optimal diagnostic quality images. FINDINGS: CEREBRUM: There is diffuse atrophic change. Stable encephalomalacia is again noted in both frontal lobes right greater than left. No evidence of midline shift, mass lesion, hemorrhage or acute infarction. No ext ra-axial fluid collections are seen. POSTERIOR FOSSA: The cerebellum and brainstem are intact. The 4th ventricle is midline. The cerebellopontine angle i s unremarkable. EXTRACRANIAL: The visualized portion of the orbits is intact. SKULL: The calvaria is intact. No evidence of skull fracture. The patient is again noted to be status post remote right frontal parietal craniotomy. CONCLUSION: 1. Status post right frontal parietal craniotomy with areas of stable encephalomalacia in the frontal lobes. 2. No acute hemorrhage or mass effect. Reji Hollins MD on August 17, 2016 at 16:31 Board Certified Radiologist. This report was verified electronically.
[2016-08-17 17:19] LABS: AMPHETAMINE, URINE NEG (NEG); BARBITURATES, URINE NEG (NEG); COCAINE, URINE NEG (NEG)
[2016-08-17 17:51] VITALS: BP 164/62; PULSE 87; RESP 16; O2SAT 96
[2016-08-17 19:15] VITALS: BP 162/83; PULSE 86; RESP 18; O2SAT 95
[2016-08-17] MEDS ORDERED: LEVE500 PO (19:17)
[2016-08-17] MEDS ORDERED: DILA100C PO (19:17)
--- NOTE | 2016-08-18 14:48 | EKG ---
Date Performed: 08/17/2016 Time Performed: 15:48:51 PTAGE: 61 years EKG: Sinus rhythm NORMAL ECG PREVIOUS TRACING : 07/30/2016 22.00 Compared to prior tracing no significant change DOCTOR: Ander Duran Interpretating Date/Time 08/18/2016 14:46:20
== END 2016-08-17 19:35 | disposition home or self-care (01) ==
LOC: NEPA 15:15
DX: R56.9 Unspecified convulsions (principal); Z72.0 Tobacco use; Z59.0 Homelessness
CPT/HCPCS: 70450; 80048; 80185; 80307; 85025; 93005; 99284; J7030

== ENCOUNTER → 2016-10-01 | Outpatient (CLI) | payer OTHER ==
[2016-10-01 11:36] LABS: HDL CHOLESTEROL 55.9 MG/DL (40.0-60.0)
== END ==
LOC: CLAB 10:22
PROVIDERS: ATTEND Nurse Practitioner Family
DX: I10 Essential (primary) hypertension (principal)
CPT/HCPCS: 36415; 80061; 84443